=== PATIENT | female | born 1960 | race Caucasian/White ===

== ENCOUNTER → 2017-04-07 | Outpatient (CLI) | payer BC ==
--- NOTE | 2017-04-07 16:40 | BD ---
EXAMINATION TYPE: MG DEXA axial skeleton. DATE OF EXAM: 04/07/2017 COMPARISON: 08.11.2014 CLINICAL HISTORY: 56-year-old female N95.1 POST MENOPAUSAL Height: 64.5 Weight: 166 FRAX RISK QUESTIONS: Alcohol (3 or more units per day): NO Family History (Parent hip fracture): NONE KNOWN Glucocorticoids (More than 3mos): NO (Ex: prednisone, prednisolone, methylprednisolone, dexamethasone, and hydrocortisone). History of Fracture in Adulthood: NO Secondary Osteoporosis: NO 1. Type 1 Diabetes: NO 2. Hyperthyroidism: NO 3. Menopause before 45: NO 4. Malnutrition: NO 5. Chronic liver disease: NO Rheumatoid Arthritis: NO Current Tobacco Use: NO RISK FACTORS HISTORY OF: Family History of Osteoporosis: NONE KNOWN Active: NO Diet low in dairy products/other sources of calcium: NO Postmenopausal woman: 46 YRS OLD PARTIAL HYST....AND HORMONAL AT 54 YRS OLD Lost more than 2 inches in height since high school: NO Hyperparathyroidism: NO Adrenal Insufficiency: NO MEDICATIONS: Additional Medications: CALCIUM WITH D, AND MULTIVITAMIN, ANTI ANXIETY AND ANTIDEPRESSANT Additional History: OSTEOARTHRITIS EXAM MEASUREMENTS: Bone mineral densitometry was performed using the 115 [employer] disks System. Bone mineral density as measured about the Lumbar spine is: ----- L1-L4(G/cm2): 1.157 T Score Values are as follows: ----- L1: -1.1 ----- L2: 0.0 ----- L3: -0.4 ----- L4: 0.6 ----- L1-L4: -0.2 Bone mineral density has: Increased 0.8% since study of: 08.11.2014 Bone mineral density about the R hip (g/cm2): 0.911 Bone mineral density about the L hip (g/cm2): 0.860 T Score values are as follows: -----R Neck: -0.8 -----L Neck: -0.7 -----R Total: -0.8 -----L Total: -1.2 Bone mineral density has: REMAINED THE SAME 0.0% since study of: 08.11.2014 FRAX %'S: THERE IS A 6.1% CHANCE OF A MAJOR OSTEOPOROTIC FX AND A 0.3% CHANCE OF A HIP FX.......UT OBABILITY IN 10 YRS TIME IMPRESSION: Osteopenia as measured by T score values in the left hip. There is slightly increased risk of fracture and the patient may be considered for treatment. Re-Scre en 2-5 years. NOTE: T-SCORE=SD OF THE YOUNG ADULT MEAN.
--- NOTE | 2017-04-09 09:10 | MM ---
Reason for exam: screening (asymptomatic). Last mammogram was performed 2 years and 8 months ago. History: Patient is postmenopausal. Physical Findings: A clinical breast exam by your physician is recommended on an annual basis and results should be correlated with mammographic findings. MG Screening Mammo w CAD Bilateral CC and MLO view(s) were taken. Prior study comparison: August 11, 2014, bilateral MG screening mammo w CAD. April 21, 2011, bilateral digital screening mammo w/CAD. The breast tissue is heterogeneously dense. This may lower the sensitivity of mammography. No significant changes when compared with prior studies. ASSESSMENT: Negative, BI-RAD 1 RECOMMENDATION: Routine screening mammogram of both breasts in 1 year.
== END | disposition home or self-care (01) ==
LOC: RADMAMWWP 15:16
PROVIDERS: ATTEND Family Medicine
DX: Z12.31 Encounter for screening mammogram for malignant neoplasm of breast (principal); M85.852 Other specified disorders of bone density and structure, left thigh; N95.1 Menopausal and female climacteric states; Z13.820 Encounter for screening for osteoporosis
CPT/HCPCS: 77080; G0202

== ENCOUNTER → 2018-06-25 | Outpatient (CLI) | payer BC ==
--- NOTE | 2018-06-25 13:35 | MM ---
Reason for exam: screening (asymptomatic). Last mammogram was performed 1 year and 3 months ago. History: Patient is postmenopausal. Physical Findings: A clinical breast exam by your physician is recommended on an annual basis and results should be correlated with mammographic findings. MG Screening Mammo w CAD Bilateral CC and MLO view(s) were taken. Prior study comparison: April 07, 2017, bilateral MG screening mammo w CAD. August 11, 2014, bilateral MG screening mammo w CAD. The breast tissue is heterogeneously dense. This may lower the sensitivity of mammography. There is no discrete abnormality. No significant changes when compared with prior studies. ASSESSMENT: Negative, BI-RAD 1 RECOMMENDATION: Routine screening mammogram of both breasts in 1 year.
== END | disposition home or self-care (01) ==
LOC: RADMAMWWP 06-01 07:49
PROVIDERS: ATTEND Family Medicine
DX: Z53.9 Procedure and treatment not carried out, unspecified reason (principal)

== ENCOUNTER → 2020-07-11 | Outpatient (CLI) | payer BC ==
--- NOTE | 2020-07-12 20:31 | BD ---
EXAMINATION TYPE: Axial Bone Density DATE OF EXAM: 07/11/2020 COMPARISON: 04.07.2017 CLINICAL HISTORY: 59 YR OLD FEMALE....ICD-10 CODE: N95.1 POST MENOPAUSAL Height: 64 Weight: 148 FRAX RISK QUESTIONS: History of Fracture in Adulthood: YES RISK FACTORS HISTORY OF: HX OF FOOT FX AN ADULT Family History of Osteoporosis: UNSURE Postmenopausal woman: YES AT ABOUT 51 YRS OLD Hyperparathyroidism: NO Adrenal Insufficiency: NO MEDICATIONS: Additional Medications: CALCIUM AND MULTIVIT WITH D, BP MEDS, IMIPRAMINE, Additional History: HYPERTENSION, EXAM MEASUREMENTS: Bone mineral densitometry was performed using the [employer] System. Bone mineral density as measured about the Lumbar spine is: ----- L1-L4(G/cm2): 1.232 T Score Values are as follows: ----- L1: -0.6 ----- L2: 0.1 ----- L3: 0.7 ----- L4: 1.5 ----- L1-L4: 0.4 Bone mineral density has: Increased 6.9% since study of: 04.07.2017 Bone mineral density about the R hip (g/cm2): 0.901 Bone mineral density about the L hip (g/cm2): 0.836 T Score values are as follows: -----R Neck: -0.5 -----L Neck: -0.9 -----R Total: -0.8 -----L Total: -1.4 Bone mineral density has: Decreased -1.9% since study of: 04.07.2017 FRAX%S: THERE IS A 12.3% CHANCE FOR A MAJOR OSTEOPOROTIC FX AND A 0.7% FOR HIP.....PROBABILITY FOR FX IN 10 YRS TIME IMPRESSION: Normal (Values between +1 and -1 indicate normal bone mass). Consider repeating this study in 5 year s or sooner if there is some new clinical indication. NOTE: T-SCORE=SD OF THE YOUNG ADULT MEAN.
--- NOTE | 2020-07-13 13:33 | MM ---
Reason for exam: screening (asymptomatic). Last mammogram was performed 2 years and 1 month ago. History: Patient is postmenopausal. Physical Findings: A clinical breast exam by your physician is recommended on an annual basis and results should be correlated with mammographic findings. MG Screening Mammo w CAD Bilateral CC and MLO view(s) were taken. Prior study comparison: June 25, 2018, bilateral MG screening mammo w CAD. April 07, 2017, bilateral MG screening mammo w CAD. The breast tissue is heterogeneously dense. This may lower the sensitivity of mammography. No significant changes when compared with prior studies. ASSESSMENT: Benign, BI-RAD 2 RECOMMENDATION: Routine screening mammogram of both breasts in 1 year.
== END | disposition home or self-care (01) ==
LOC: RADMAMWWP 07:27
PROVIDERS: ATTEND Family Medicine
DX: Z12.31 Encounter for screening mammogram for malignant neoplasm of breast (principal); N95.1 Menopausal and female climacteric states
CPT/HCPCS: 77067; 77080

== ENCOUNTER → 2021-07-12 | Outpatient (CLI) | payer BC ==
--- NOTE | 2021-07-15 10:39 | MM ---
Reason for exam: screening (asymptomatic). Last mammogram was performed 1 year ago. History: Patient is postmenopausal. Physical Findings: A clinical breast exam by your physician is recommended on an annual basis and results should be correlated with mammographic findings. MG Screening Mammo w CAD Bilateral CC and MLO view(s) were taken. Prior study comparison: July 11, 2020, bilateral MG screening mammo w CAD. June 25, 2018, bilateral MG screening mammo w CAD. The breast tissue is heterogeneously dense. This may lower the sensitivity of mammography. There is no discrete abnormality. No significant changes when compared with prior studies. ASSESSMENT: Negative, BI-RAD 1 RECOMMENDATION: Routine screening mammogram of both breasts in 1 year.
== END | disposition home or self-care (01) ==
LOC: RADMAMWWP 08:12
PROVIDERS: ATTEND Family Medicine
DX: Z12.31 Encounter for screening mammogram for malignant neoplasm of breast (principal)
CPT/HCPCS: 77067

== ENCOUNTER → 2023-07-24 | Outpatient (CLI) | payer BC ==
--- NOTE | 2023-07-24 10:32 | MM ---
Reason for Exam: Screening (asymptomatic). Last mammogram was performed 2 year(s) and 0 month(s) ago. Patient History: Menarche at age 13. First Full-Term at age 28. Hysterectomy at age 46. Postmenopausal. Risk Values: Steffany 5 year model risk: 1.6%. NCI Lifetime model risk: 6.8%. Prior Study Comparison: 06/25/2018 Bilateral Screening Mammogram, LOCATED WITHIN [facility]. 07/11/2020 Bilateral Screening Mammogram, LOCATED [facility]IN [facility]. 07/12/2021 Bilateral Screening Mammogram, LOCATED WITHIN [facility]. Tissue Density: The breast tissue is heterogeneously dense. This may lower the sensitivity of mammography. Findings: Analyzed By CAD. There is no suspicious group of microcalcifications or new suspicious mass in either breast. Overall Assessment: Negative, BI-RAD 1 Management: Screening Mammogram of both breasts in 1 year. A clinical breast exam by your physician is recommended on an annual basis and results should be correlated with mammographic findings. Note on Steffany scores and lifetime risk: 1. A Steffany score greater than 3% is considered moderate risk. If this is the case, consider specialist referral to assess eligibility for a risk reducing agent. If overall lifetime risk for the development of breast cancer is 20% or higher, the patient may qualify for future screening with alternating mammogram and breast MRI. Electronically signed and approved by: Rod Sepulveda D.O.
== END | disposition home or self-care (01) ==
LOC: RADMAMWWP 06:54
PROVIDERS: ATTEND Family Medicine
DX: Z12.31 Encounter for screening mammogram for malignant neoplasm of breast (principal); Z78.0 Asymptomatic menopausal state
CPT/HCPCS: 77063; 77067

== ENCOUNTER → 2023-12-18 | Outpatient (CLI) | payer BC ==
[2023-12-18 19:09] LABS: T4, Free (Free Thyroxine) 1.01 ng/dL (0.80-1.80)
== END | disposition home or self-care (01) ==
LOC: LABWHC1 14:14
PROVIDERS: ATTEND Family Medicine
DX: Z83.49 Family history of other endocrine, nutritional and metabolic diseases (principal)
CPT/HCPCS: 36415; 84439; 84443; 86800

== ENCOUNTER → 2024-08-05 | Outpatient (CLI) | payer BC ==
[2024-08-05 15:43] LABS: T4, Free (Free Thyroxine) 0.95 ng/dL (0.80-1.80)
== END | disposition home or self-care (01) ==
LOC: LABWHC1 10:51
PROVIDERS: ATTEND Internal Medicine
DX: E06.3 Autoimmune thyroiditis (principal)
CPT/HCPCS: 36415; 84439; 84443; 86376

== ENCOUNTER → 2024-11-22 | Outpatient (CLI) | payer MEDICARE ==
[2024-11-22 19:38] LABS: T4, Free (Free Thyroxine) 0.95 ng/dL (0.80-1.80)
== END | disposition home or self-care (01) ==
LOC: LABWHC1 14:13
PROVIDERS: ATTEND Internal Medicine
DX: E06.3 Autoimmune thyroiditis (principal)
CPT/HCPCS: 36415; 84439; 84443